=== PATIENT | female | born 1985 | race Caucasian/White ===

== ENCOUNTER 2023-10-22 20:28 | Emergency (ER) | payer MEDICARE, SELFPAY ==
[2023-10-22 20:32] VITALS: BP 128/90
--- NOTE | 2023-10-22 22:54 | ED.GENMED ---
History of Present Illness
<VILMA Buckley - Last Filed: 10/22/23 23:36>
General
Chief Complaint: Alcohol Problem
Source: patient
Exam Limitations: none
Time Seen by Provider: 10/22/23 21:04
Nursing documentation reviewed up to this point in time: agreed with
Travel History
Have you had any contact with someone who has COVID-19?: No
Do you have any symptoms of coronavirus? Fever > 100 degrees, chills, cough, shortness of breath, sore throat, loss of taste or smell, muscle aches, or headache?: No
History of Present Illness
History of Present Illness:
Patient is a 37-year-old female who presents to the ER for evaluation. Patient reports she has a history of alcohol abuse and is scheduled to go to [facility] on Tuesday for detox. She presents to the ER today stating that she was living with her
boyfriend who does not want her home and she has nowhere else to go. She is also afraid of going in withdrawal and having a seizure as she had history of seizures in the past In addition her ex-boyfriend recently from a seizure. She
reports the thought of having a seizure scares her. She did drink prior to arrival.
Past History
<VILMA uBckley - Last Filed: 10/22/23 23:36>
Past History
ED Past Medical History: Psychiatric and Other (ADHD)
ED Past Surgical History: None
Social History
Tobacco: Non-smoker
Alcohol: Binge drinker
Drug: None
Personal: Single
Living: with family
Review of Systems
<VILMA Buckley - Last Filed: 10/22/23 23:36>
Review of Systems
Allergies reviewed?: Yes
All Other Systems: ROS reviewed and negative except as documented in HPI and ROS
Constitutional: Reports no symptoms
Respiratory: Reports no symptoms
Cardiac: Reports no symptoms
ABD/GI: Reports nausea; Denies vomiting
Musculoskeletal: Reports no symptoms
Skin: Reports no symptoms
Neurological: Reports no symptoms
Psychiatric: Reports no symptoms
Phy Exam
<VILMA Buckley - Last Filed: 10/22/23 23:36>
General Physical Exam
General Presentation: no apparent distress
General age: appears stated age
General Skin: warm and dry
General Habitus: normal
General Mental: alert
General Hydration: appears well hydrated
Cardiovascular Exam
Cardiovascular Exam: regular rate/rhythm, no murmur and normal peripheral pulses
Pulmonary Exam
Pulmonary Exam: lungs clear and no respiratory distress
Neurological Exam
Neurological Exam: alert and oriented x3
[place] Coma Scale
Eye Opening: Spontaneous
Verbal Response: Oriented
Motor Response: Obeys Commands
GCS Total Score: 15
Musculoskeletal Exam
Musculoskeletal Exam: full ROM
Skin Exam
Skin Exam: normal color and warm/dry
Psychiatric Exam
Psychiatric Exam: normal mood/affect
<Alecia Pham MD - Last Filed: 10/22/23 23:27>
Shazia Coma Scale
GCS Total Score: 15
Scores
<VILMA Buckley - Last Filed: 10/22/23 23:36>
Withdrawal Assessment of Alcohol
Withdrawal Assessment Completed?: Not applicable
Course
<VILMA Buckley - Last Filed: 10/22/23 23:36>
Orders/Labs/Results
Orders:
Orders
10/22/23 23:29
Vital Signs- Treatment ONCE
Frequency: Once
Vital Signs
Initial and Last Documented VS:
Initial Vital Signs
Temp Pulse Resp BP Pulse Ox
97.1 F 108 14 128/90 96
10/22/23 20:32 10/22/23 20:32 10/22/23 20:32 10/22/23 20:32 10/22/23 20:32
Last Documented Vital Signs
Temp Pulse Resp BP Pulse Ox
97.1 F 108 14 128/90 96
10/22/23 20:32 10/22/23 20:32 10/22/23 20:32 10/22/23 20:32 10/22/23 20:32
<Alecia Pham MD - Last Filed: 10/22/23 23:27>
Orders/Labs/Results
Orders:
Orders
10/22/23 23:29
Vital Signs- Treatment ONCE
Frequency: Once
Vital Signs
Initial and Last Documented VS:
Initial Vital Signs
Temp Pulse Resp BP Pulse Ox
97.1 F 108 14 128/90 96
10/22/23 20:32 10/22/23 20:32 10/22/23 20:32 10/22/23 20:32 10/22/23 20:32
Last Documented Vital Signs
Temp Pulse Resp BP Pulse Ox
97.1 F 108 14 128/90 96
10/22/23 20:32 10/22/23 20:32 10/22/23 20:32 10/22/23 20:32 10/22/23 20:32
<VILMA Buckley - Last Filed: 10/22/23 23:36>
MDM/Problems Addressed
Differential Diagnosis Includes:
Not limited to alcohol abuse
MDM/Problems Addressed:
Patient is a 37-year-old female with alcohol abuse he drank prior to arrival presents to the ER for evaluation. Patient is scheduled for inpatient treatment at [facility] on Tuesday however she is afraid of going into withdrawal and having a
seizure. After discussion between myself and ED physician she is comfortable being discharged from the ER with a prescription for Ativan. This medication was sent to her pharmacy. She is to take as directed. There is no evidence of withdrawal
here in the ER she is calm awake alert. She drank prior to arrival.
Denies any suicidal homicidal thoughts
eval by ED attending
Chronic conditions affecting care:
alcohol abuse
<VILMA Buckley - Last Filed: 10/22/23 23:36>
*Pulse Oximetry
Patient hypoxic: no
*Critical Care Note
Total Time (30-74mins, 75-104mins- exclusive of procedures): Not Applicable
ED Attending Note
<VILMA Buckley - Last Filed: 10/22/23 23:36>
-
Portions of this chart may have been created with voice recognition software.� Occasional wrong word or��sound alike� substitutions may have occurred due to the inherent limitations of voice recognition software.
<Alecia Pham MD - Last Filed: 10/22/23 23:27>
ED Attending Note
Patient seen and examined by attending physician: Yes
I performed the substantive portion of visit, reviewed & personally made and approve the management plan that is documented in note by myself or MAYI.: Yes
ED Attending Note:
37 yr old with hx of AUD, last drink this afternoon, eager to go to rehab. Has been accepted at [facility] on Tuesday. Pt does not have physical complaints at this time, no si/hi. Is concerned about having a sz (has had etoh withdrawal sz in past
reportedly), asking for prophylaxis. Undestands that she can not drink while taking, r/b associated with, etc. Pt expresses understanding. Well appearing, just ate a meal, watching tv, lucid.
Discharge Plan
Departure
Patient Disposition: Home (Routine Discharge)
Date of Disposition: 10/22/23
Time of Disposition: 23:30
Patient with high blood pressure during this ER visit?: Yes
Condition: Fair
Covid-19: Not Applicable
Discharge Problem:
Alcohol abuse
Instructions: Alcohol Use Disorder (DC), BLOOD PRESSURE
Prescriptions:
New
lorazepam [Ativan] 1 mg tablet
1 mg PO TID PRN (Reason: alcohol withdrawal) Qty: 10 0RF
No Action
escitalopram oxalate 20 MG tablet
20 mg PO DAILY
levetiracetam 500 mg tablet
500 tab PO BID
Patient Comments:
pt states she gets this from [facility]
dextroamphetamine-amphetamine 10 mg tablet
10 mg PO NOON
Patient Comments:
03/04/22 pt picked up 02/08/22
dextroamphetamine-amphetamine 12.5 mg tablet
25 mg PO DAILY
Patient Comments:
03/04/22 pt picked up 02/09/22 #60
levetiracetam [Keppra] 500 mg tablet
500 mg PO BID Qty: 60 0RF
lorazepam [Ativan] 1 mg tablet
1 mg PO TID Qty: 10 0RF
Referrals:
Maurisio Persaud MD [Family Provider] -
Activity Restrictions/Additional Instructions:
A prescription for Ativan was sent to your pharmacy . take as directed to prevent withdrawal. Return to the ER if any worsening of symptoms. Patient is medically cleared for inpatient treatment.
Interventions
Interventions:
*Risk Screen - Suicide Last Done: 10/22/23 20:32
*General Assessment Last Done: 10/22/23 20:32
*Neglect/Abuse Screening Last Done: 10/22/23 20:32
ED- Fall Risk Assessment Last Done: 10/22/23 21:59
ED- Neurological Assessment Last Done: 10/22/23 21:59
ED-Psychological Assessment Last Done: 10/22/23 21:59
[2023-10-22 23:32] VITALS: BP 111/71
--- NOTE | 2023-10-22 23:35 | EDRN ---
Patient was on the phone with someone, seems comfortable, ate a sandwich provided for her, no other to complaints
== END 2023-10-23 00:28 | disposition home or self-care (01) ==
LOC: EMR 20:28
PROVIDERS: EMERGENCY PHYSICIAN Emergency Medicine; FAMILY PHYSICIAN Family Medicine
DX: F10.10 Alcohol abuse, uncomplicated (principal); R03.0 Elevated blood-pressure reading, without diagnosis of hypertension
CPT/HCPCS: 99283

== ENCOUNTER 2023-10-23 06:33 | Emergency (ER) | payer MEDICARE, SELFPAY ==
[2023-10-23 06:36] VITALS: BP 96/74
--- NOTE | 2023-10-23 07:12 | ED.GENMED ---
History of Present Illness
General
Chief Complaint: Withdrawal Symptoms
Source: patient
Exam Limitations: none
Time Seen by Provider: 10/23/23 06:58
Nursing documentation reviewed up to this point in time: agreed with
Travel History
Have you had any contact with someone who has COVID-19?: No
Do you have any symptoms of coronavirus? Fever > 100 degrees, chills, cough, shortness of breath, sore throat, loss of taste or smell, muscle aches, or headache?: No
History of Present Illness
History of Present Illness:
37-year-old female past medical history of alcohol abuse anxiety depression ADHD has been to the emergency department multiple times in the last few days seeking treatment for rehab. Ended up being placed in [place] tomorrow but claims she is
feeling worsening withdrawal symptoms overnight last night and was concerned that she was not going to make until tomorrow without treatment and she is unable to get her prescription for multiple hours. She claims to have some anxiety some nausea
has not been vomiting but has had some intermittent dry heaves some mild headache some mild tactile disturbances sensitivity to light and noise. Denies any specific chest pain shortness of breath fevers.
Past History
Past History
ED Past Medical History: Psychiatric and Other (ADHD)
ED Past Surgical History: None
Social History
Tobacco: Non-smoker
Alcohol: Binge drinker
Drug: None
Personal: Single
Living: with family
Review of Systems
Review of Systems
Allergies reviewed?: Yes
All Other Systems: ROS reviewed and negative except as documented in HPI and ROS
Phy Exam
Physical Exam
Physical Exam:
GENERAL: Alert , in no apparent distress
EYE: pupils equal and reactive
NECK: Supple, no significant adenopathy.
ENT: o/p clr, mmm.
CARDIAC: Regular rate and rhythm .
LUNGS: Clear breath sounds bilaterally, no acute respiratory distress, no wheezes/rales/rhonchi
ABDOMEN: Soft, without focal tenderness, no r/g, no cvat
NEUROLOGICAL: Alert and oriented, no focal neuro deficits
SKIN: Warm and dry, skin intact.
MUSCULOSKELETAL: No edema, well perfused.
PSYCH: Normal and appropriate interaction.
Course
Orders/Labs/Results
Orders:
Orders
10/23/23 07:10
Lorazepam [Ativan] 1 mg PO NOW STA
Multivitamin [Theragran] 1 tablet PO NOW STA
Ondansetron Orally Disint [Zofran Odt (Orally Disintegrating)] 4 mg PO NOW STA
Thiamine HCl [Vitamin B1] 100 mg PO NOW STA
10/23/23 08:51
Lorazepam [Ativan] 1 mg PO NOW STA
Vital Signs
Initial and Last Documented VS:
Initial Vital Signs
Temp Pulse Resp BP Pulse Ox
98.2 F 108 18 96/74 97
10/23/23 06:36 10/23/23 06:36 10/23/23 06:36 10/23/23 06:36 10/23/23 06:36
Last Documented Vital Signs
Temp Pulse Resp BP Pulse Ox
98.2 F 89 18 99/68 98
10/23/23 06:36 10/23/23 09:53 10/23/23 09:53 10/23/23 09:53 10/23/23 09:53
MDM/Problems Addressed
MDM/Problems Addressed:
37-year-old female presenting to the emergency department concerns of alcohol withdrawal. Last drink was yesterday. Was seen here twice since yesterday seeking rehab. No symptoms at previous visits. Developing withdrawal overnight last night.
CIWA score currently in the high teens. Patient was given Ativan and other symptomatic medication. Otherwise patient generally well-appearing no acute distress heart rate slightly elevated slight tremor with arms extended.
0900: Patient reassessed with improvement of CIWA to roughly 10. Still had very minor tremors with arms extended. Heart rate now in the 90s. Was watched for another hour and a half had some mild ongoing symptoms given additional dose of Ativan.
Patient then reassessed an hour after and felt generally well and appears to be stable for outpatient management at this point with Ativan as long half-life should be okay for detox admission tomorrow. She was advised to return for any concerns.
*Critical Care Note
Total Time (30-74mins, 75-104mins- exclusive of procedures): Not Applicable
ED Attending Note
-
Portions of this chart may have been created with voice recognition software.� Occasional wrong word or��sound alike� substitutions may have occurred due to the inherent limitations of voice recognition software.
Discharge Plan
Departure
Patient Disposition: Home (Routine Discharge)
Date of Disposition: 10/23/23
Time of Disposition: 10:44
Patient with high blood pressure during this ER visit?: No
Condition: Good
Covid-19: Not Applicable
Discharge Problem:
Alcohol abuse
Instructions: Alcohol Use Disorder (DC)
Prescriptions:
No Action
escitalopram oxalate 20 MG tablet
20 mg PO DAILY
levetiracetam 500 mg tablet
500 tab PO BID
Patient Comments:
pt states she gets this from [facility]
dextroamphetamine-amphetamine 10 mg tablet
10 mg PO NOON
Patient Comments:
03/04/22 pt picked up 02/08/22
dextroamphetamine-amphetamine 12.5 mg tablet
25 mg PO DAILY
Patient Comments:
03/04/22 pt picked up 02/09/22 #60
levetiracetam [Keppra] 500 mg tablet
500 mg PO BID Qty: 60 0RF
lorazepam [Ativan] 1 mg tablet
1 mg PO TID Qty: 10 0RF
lorazepam [Ativan] 1 mg tablet
1 mg PO TID PRN (Reason: alcohol withdrawal) Qty: 10 0RF
Referrals:
Maurisio Persaud MD [Family Provider] -
Activity Restrictions/Additional Instructions:
You came to the emergency department today with concerns of alcohol withdrawal. Your symptoms were well-controlled here. Please follow closely with your detox tomorrow and return to the emergency department for any additional concerns in the
meantime.
Interventions
Interventions:
*Risk Screen - Suicide Last Done: 10/23/23 06:36
*General Assessment Last Done: 10/23/23 06:36
*Neglect/Abuse Screening Last Done: 10/23/23 06:36
*ED COVID-19 Vaccine History Last Done: 10/23/23 07:21
ED- Neurological Assessment Last Done: 10/23/23 07:25
ED-Psychological Assessment Last Done: 10/23/23 07:25
[2023-10-23] MEDS: ZOFRAN ODT (ORALLY DISINTEGRATING) 4 MG PO (07:20)
[2023-10-23 07:21] VITALS: BMI 23.5
[2023-10-23 07:23] VITALS: BP 104/71
[2023-10-23] MEDS: ATIVAN 1 MG PO ×2 (08:02→09:50)
[2023-10-23] MEDS: THERAGRAN 1 TABLET PO (08:45)
[2023-10-23] MEDS: VITAMIN B1 100 MG PO (08:45)
[2023-10-23 09:53] VITALS: BP 99/68
[2023-10-23 11:00] VITALS: BP 114/75
== END 2023-10-23 11:17 | disposition home or self-care (01) ==
LOC: EMR 06:33
PROVIDERS: EMERGENCY PHYSICIAN Emergency Medicine; FAMILY PHYSICIAN Family Medicine
DX: F10.10 Alcohol abuse, uncomplicated (principal); F32.A Depression, unspecified; F41.9 Anxiety disorder, unspecified; F90.9 Attention-deficit hyperactivity disorder, unspecified type
CPT/HCPCS: 99282

== ENCOUNTER 2023-10-24 00:08 | Emergency (ER) | payer MEDICARE, SELFPAY ==
[2023-10-24] VITALS (10 sets, daily range): BP systolic 85–118; BP diastolic 47–93; BMI 23.6
--- NOTE | 2023-10-24 01:50 | ED.GENMED ---
History of Present Illness
<VILMA Buckley - Last Filed: 10/24/23 15:49>
General
Chief Complaint: Withdrawal Symptoms
Source: patient
Exam Limitations: none
Time Seen by Provider: 10/24/23 01:37
Nursing documentation reviewed up to this point in time: agreed with
Travel History
Have you had any contact with someone who has COVID-19?: No
Do you have any symptoms of coronavirus? Fever > 100 degrees, chills, cough, shortness of breath, sore throat, loss of taste or smell, muscle aches, or headache?: No
History of Present Illness
History of Present Illness:
Patient is a 37-year-old female with alcohol abuse presents to the ER complaining of alcohol withdrawal. Patient was seen here last night and this am for alcohol detox request . there is a bed for patient at [facility] however not for another
several hours. Pt was seen here earlier today as documented and received oral Ativan . She last drank in the afternoon.
pt is afraid that she is going to have a seizure before going to rehab which is what prompted her to come to the ER. She also has nowhere to stay presently and does not have a phone and therefore is unable to be contacted by [facility] for
transportation for admission purposes.
She does feel little anxious and shaky.
As documented patient does have history of an alcohol withdrawal seizure years ago.
Patient is awake alert no acute distress she is able to give good history.
Denies any nausea vomiting hallucinations.
Past History
<VILMA Buckley - Last Filed: 10/24/23 15:49>
Past History
ED Past Medical History: Psychiatric and Other (ADHD)
ED Past Surgical History: None
Social History
Tobacco: Non-smoker
Alcohol: Binge drinker
Drug: None
Personal: Single
Living: with family
Review of Systems
<VILMA Buckley - Last Filed: 10/24/23 15:49>
Review of Systems
Allergies reviewed?: Yes
All Other Systems: ROS reviewed and negative except as documented in HPI and ROS
Constitutional: Reports no symptoms; Denies fever, fatigue or chills
EENT: Reports no symptoms
Respiratory: Reports no symptoms
Cardiac: Reports no symptoms
ABD/GI: Reports no symptoms; Denies nausea or vomiting
: Reports no symptoms
Musculoskeletal: Reports no symptoms
Skin: Reports no symptoms
Neurological: Reports other (feel slightly shaky )
Hematologic/Lymphatic: Reports no symptoms
Psychiatric: Reports anxiety; Denies suicidal
Phy Exam
<VILMA Buckley - Last Filed: 10/24/23 15:49>
General Physical Exam
General Presentation: no apparent distress
General age: appears stated age
General Skin: warm and dry
General Habitus: normal
General Mental: alert
General Hydration: appears well hydrated
Cardiovascular Exam
Cardiovascular Exam: regular rate/rhythm, no murmur, normal peripheral pulses and other (Patient was tachycardic in triage )
Pulmonary Exam
Pulmonary Exam: lungs clear and no respiratory distress
Neurological Exam
Neurological Exam: alert, oriented x3, no motor deficits, no sensory deficits and speech normal
Shazia Coma Scale
Eye Opening: Spontaneous
Verbal Response: Oriented
Motor Response: Obeys Commands
GCS Total Score: 15
Musculoskeletal Exam
Musculoskeletal Exam: full ROM
Skin Exam
Skin Exam: normal color and warm/dry
Psychiatric Exam
Psychiatric Exam: normal mood/affect
Scores
<VILMA Buckley - Last Filed: 10/24/23 15:49>
Withdrawal Assessment of Alcohol
Withdrawal Assessment Completed?: Yes
Nausea and Vomiting: No nausea and no vomiting
Tactile Disturbances: None
Tremor: No tremor
Auditory Disturbances: Not present
Paroxysmal Sweats: No sweat visible
Visual Disturbances: Not present
Anxiety: Mild anxiety
Headache, Fullness in Head: Not present
Agitation: Normal activity
Orientation and clouding of sensorium: Oriented and can do serial additions
Total CIWA Score: 1
Alcohol Withdrawal Medication Recommendation: Equal to MSAS Score 0-4. Monitor & re-assess q2hrs, NO MEDICATION NEEDED
<Gm Larry DO - Last Filed: 10/24/23 07:30>
Withdrawal Assessment of Alcohol
Total CIWA Score: 1
Alcohol Withdrawal Medication Recommendation: Equal to MSAS Score 0-4. Monitor & re-assess q2hrs, NO MEDICATION NEEDED
Course
<VILMA Buckley - Last Filed: 10/24/23 15:49>
Orders/Labs/Results
Orders:
Orders
10/24/23 02:51
Lorazepam [Ativan] 1 mg PO NOW STA
Vital Signs
Initial and Last Documented VS:
Initial Vital Signs
Temp Pulse Resp BP Pulse Ox
97.8 F 108 20 118/82 96
10/24/23 00:11 10/24/23 00:11 10/24/23 00:11 10/24/23 00:11 10/24/23 00:11
Last Documented Vital Signs
Temp Pulse Resp BP Pulse Ox
97.8 F 79 12 85/47 96
10/24/23 00:11 10/24/23 09:31 10/24/23 09:31 10/24/23 09:00 10/24/23 08:30
<Gm Larry DO - Last Filed: 10/24/23 07:30>
Orders/Labs/Results
Orders:
Orders
10/24/23 02:51
Lorazepam [Ativan] 1 mg PO NOW STA
Vital Signs
Initial and Last Documented VS:
Initial Vital Signs
Temp Pulse Resp BP Pulse Ox
97.8 F 108 20 118/82 96
10/24/23 00:11 10/24/23 00:11 10/24/23 00:11 10/24/23 00:11 10/24/23 00:11
Last Documented Vital Signs
Temp Pulse Resp BP Pulse Ox
97.8 F 79 12 85/47 96
10/24/23 00:11 10/24/23 09:31 10/24/23 09:31 10/24/23 09:00 10/24/23 08:30
<VILMA Buckley - Last Filed: 10/24/23 15:49>
MDM/Problems Addressed
Differential Diagnosis Includes:
not limited to: alcohol withdrawl , alcohol use disorder
MDM/Problems Addressed:
Patient is a 37-year-old female who was seen last night for alcohol detox withdrawal and again this morning. [facility] was involved patient has a bed at [facility] later today however patient has nowhere to go presently does not have a phone and is
therefore unable to be contacted by [facility] or facility .
Pt appears in no acute distress feeling slightly anxious minimally intermittently tachycardic but looks well no nausea vomiting tolerating fluids/food here. Patient was given oral Ativan will keep patient here until placement at [facility] later
this am.
ED physician aware
<VILMA Buckley - Last Filed: 10/24/23 15:49>
*Pulse Oximetry
Patient hypoxic: no
*Critical Care Note
Total Time (30-74mins, 75-104mins- exclusive of procedures): Not Applicable
Data Reviewed
Review of Other/Old Records Reveals: Other (prior ED visits )
Source: patient
ED Attending Note
<VILMA Buckley - Last Filed: 10/24/23 15:49>
-
Portions of this chart may have been created with voice recognition software.� Occasional wrong word or��sound alike� substitutions may have occurred due to the inherent limitations of voice recognition software.
Discharge Plan
Departure
Patient Disposition: Acute Rehab Facility
Date of Disposition: 10/24/23
Time of Disposition: 03:54
Patient with high blood pressure during this ER visit?: No
Condition: Fair
Covid-19: Not Applicable
Discharge Problem:
Alcohol abuse
Instructions: Alcohol Use Disorder (DC)
Prescriptions:
No Action
escitalopram oxalate 20 MG tablet
20 mg PO DAILY
levetiracetam 500 mg tablet
500 tab PO BID
Patient Comments:
pt states she gets this from [facility]
dextroamphetamine-amphetamine 10 mg tablet
10 mg PO NOON
Patient Comments:
03/04/22 pt picked up 02/08/22
dextroamphetamine-amphetamine 12.5 mg tablet
25 mg PO DAILY
Patient Comments:
03/04/22 pt picked up 02/09/22 #60
lorazepam [Ativan] 1 mg tablet
1 mg PO TID Qty: 10 0RF
lorazepam [Ativan] 1 mg tablet
1 mg PO TID PRN (Reason: alcohol withdrawal) Qty: 10 0RF
Referrals:
Maurisio Persaud MD [Family Provider] -
Interventions
Interventions:
*Risk Screen - Suicide Last Done: 10/24/23 00:11
*General Assessment Last Done: 10/24/23 01:25
*Neglect/Abuse Screening Last Done: 10/24/23 00:11
ED- Fall Risk Assessment Last Done: 10/24/23 07:17
*ED COVID-19 Vaccine History Last Done: 10/24/23 01:25
*Nursing Disposition Last Done: 10/24/23 14:41
ED- Neurological Assessment Last Done: 10/24/23 07:17
ED-Psychological Assessment Last Done: 10/24/23 07:17
Discharge Date and Time
Discharge Date/Time: 10/24/23 14:43
[2023-10-24] MEDS: ATIVAN 1 MG PO (03:15)
--- NOTE | 2023-10-24 07:30 | EDRN ---
this RN entered the pts room and the pt is resting in stretcher in the lowest position, side rails up x2, call mac within reach, HOB elevated, no s/s of distress, the pt stated that her family is coming tomorrow to pick her up from the ER and take
her to rehab, however [facility] states that they are picking the pt up to take her to [place] today, VS WNL, NSR in the 80's, last BP 94/64 (75), RA Sp02 96%, will continue to monitor the pt closely
--- NOTE | 2023-10-24 09:16 | EDRN ---
this RN called [facility] and spoke to staff that stated that [facility] was picking up the pt to take her to rehab today, this information was relayed to the pt, the pt is resting in stretcher in the lowest position, side rails up x2, call
mac within reach, HOB elevated, no s/s of distress, VS WNL, MSAS protocol maintained, will continue to monitor the pt closely
== END 2023-10-24 14:43 ==
LOC: EMR 00:08
PROVIDERS: EMERGENCY PHYSICIAN Student in an Organized Health Care Education/Training Program; FAMILY PHYSICIAN Family Medicine
DX: F10.10 Alcohol abuse, uncomplicated (principal)
CPT/HCPCS: 99283